=== PATIENT | female | born 1975 | race Caucasian/White ===

== ENCOUNTER 2019-02-02 22:43 | Emergency (ER) | payer BC ==
[~2019-02-02] VITALS: Ht 160 cm; Wt 61.2 kg
[~2019-02-02 22:43] MED LIST: AZEL137S7 NS; FLUT1DIS5 IH; FLUT50DI IH; LEVA1.2528 IH; MONT10TA22 PO; NIFE30TA91 PO; NORG1TAB PO
--- NOTE | 2019-02-02 22:45 | NUR ---
"BIBSELF C/O ALLERGIC REACTION X1 HR. PT STATES "I FEEL LIKE MY THROAT IS CLOSING". +NEW MED BUSPIRONE X2 WEEKS. 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
[2019-02-02] MEDS ORDERED: diphenhydrAMINE HCL 50 MG/ML VIAL ONE (22:56)
[2019-02-02] MEDS ORDERED: diphenhydrAMINE HCL 50 MG/ML VIAL IM ONE (23:00)
[2019-02-02 23:20] VITALS: BP 183/110
== END 2019-02-02 23:53 | disposition home or self-care (01) ==
LOC: ER 22:51
DX: T78.40XA Allergy, unspecified, initial encounter (principal); F41.0 Panic disorder [episodic paroxysmal anxiety]; I10 Essential (primary) hypertension; J45.909 Unspecified asthma, uncomplicated; Z79.899 Other long term (current) drug therapy; X58.XXXA Exposure to other specified factors, initial encounter
CPT/HCPCS: 96372; 99283; J1200